=== PATIENT | male | born 1975 | race Two or more races ===

== ENCOUNTER → 2017-01-05 | Outpatient (CLI) | payer BC | END | disposition home or self-care (01) | LOC: Rad HDHVI 10:43 | PROVIDERS: ATTEND Internal Medicine Cardiovascular Disease | DX: M19.041 Primary osteoarthritis, right hand (principal); M25.531 Pain in right wrist | CPT/HCPCS: 73110; 73130 ==

== ENCOUNTER 2017-07-13 16:53 | Inpatient (IN) | payer MEDICAID ==
[~2017-07-13] VITALS: Ht 175.3 cm; Wt 89.2 kg
[2017-07-13] MEDS ORDERED: SODIUM CHLORIDE 0.9% 1,000 ML IV ONE ×3 (17:38→21:15)
[2017-07-13] MEDS ORDERED: ONDANSETRON HCL 4 MG/2 ML VIAL IV ONE (17:45)
[2017-07-13] MEDS ORDERED: PANTOPRAZOLE 40 MG/10 ML VIAL IV ONE (18:00)
[2017-07-13] MEDS ORDERED: LEVOFLOXACIN 500MG 100 ML IV ONE (18:00)
[2017-07-13] MEDS ORDERED: metroNIDAZOLE 500MG/100ML 100 ML IV ONE (18:00)
[2017-07-13 19:12] LABS: CONDITION Y; DEFINITIVE SEE PRINTOUT; Hematocrit 29.3 % (41.0-53.0); Hemoglobin 10.2 g/dL (13.5-17.5); Mean Corpuscular Hemoglobin 35.6 pg (28.0-32.0); Mean Corpuscular Hgb Conc. 34.8 g/dL (32.0-36.0); Mean Corpuscular Volume 102.3 fL (80.0-100.0); Mean Platelet Volume 9.3 fL (7.4-10.4); Platelet Count (auto) 122 10^3/uL (140-450); Red Cell Distribution Width 17.6 % (11.6-16.0); White Blood Cell 6.4 10^3/uL (4.4-10.8)
[2017-07-13 19:25] LABS: Lactic Acid w/Reflex 2.8 mmol/L (0.4-2.0)
[2017-07-13 19:27] LABS: Metamyelocytes % 0; Myelocytes % 0; Promyelocytes % 0; Reactive Lymphocytes 0
[2017-07-13 19:36] LABS: Albumin 1.5 g/dL (3.4-5.0); Amylase 143 U/L (25-115); Anion Gap 13 (5-15); Blood Urea Nitrogen 36 mg/dL (7-18); Calcium 7.1 mg/dL (8.5-10.1); Carbon Dioxide 19 mmol/L (21-32); Chloride 104 mmol/L (98-107); Glucose 97 mg/dL (74-106); Magnesium 1.7 mg/dL (1.6-2.6); Potassium 4.6 mmol/L (3.5-5.1); Sodium 136 mmol/L (136-145)
[2017-07-13 19:38] LABS: INR 1.95 (0.9-1.15); Partial Thromboplastin Time 51.3 sec (22.64-33.71)
[2017-07-13 19:43] LABS: Alkaline Phosphatase 158 U/L (45-117); Aspartate Aminotransferase 141 U/L (15-37); BUN/Creatinine Ratio 3.3; Bilirubin, Total 11.8 mg/dL (0.2-1.0); GFR African American 7 mL/min; GFR Non-African American 6 mL/min; Total Protein 6.2 g/dL (6.4-8.2)
[2017-07-13 20:01] LABS: REFLEX LACTIC ACID YES OR NO YES
[2017-07-13 20:11] LABS: Prothrombin Time 21.4 sec (9.37-12.3)
[2017-07-13 20:53] LABS: Urine Mucus FEW (None Seen); Urine RBC 6 /hpf (0 - 3); Urine Squamous Epithelial Cell FEW /hpf (<5)
[2017-07-13 21:00] LABS: Lactic Acid w/Reflex 2.9 mmol/L (0.4-2.0)
[2017-07-13 21:03] LABS: Macrocytosis Slight; Platelet Estimate Decreased
[2017-07-13 21:09] LABS: REFLEX LACTIC ACID YES OR NO YES
[2017-07-13 21:23] LABS: Urine Color Amber (Yellow)
[2017-07-13] MEDS: PHENYLEPHRINE INJ 20 MG in SODIUM CHL 0.9% 250 ML IV SCH (22:57)
[2017-07-13] MEDS ORDERED: NITROGLYCERIN 0.4 MG SL TAB SL PRN (23:00)
[2017-07-13] MEDS ORDERED: VANCOMYCIN PER PHARMACY 0 MG IV SCH (23:00)
[2017-07-13] MEDS ORDERED: ONDANSETRON HCL 4 MG/2 ML VIAL IV PRN (23:00)
[2017-07-13] MEDS ORDERED: ACETAMINOPHEN 325 MG TAB PO PRN (23:00)
[2017-07-13] MEDS ORDERED: ALBUMIN 5% 250 ML IV ONE ×2 (23:00→23:30)
[2017-07-13] MEDS ORDERED: VANCOMYCIN 1GM/250ML D5W 250 ML IV ONE (23:30)
[2017-07-13] MEDS: SODIUM CHLORIDE 0.9% 1,000 ML IV SCH (23:49)
[2017-07-14 00:02] LABS: Albumin 1.5 g/dL (3.4-5.0); Calcium 6.8 mg/dL (8.5-10.1); Potassium 4.7 mmol/L (3.5-5.1)
[2017-07-14 00:10] LABS: BUN/Creatinine Ratio 3.6; Bilirubin, Total 11.1 mg/dL (0.2-1.0); Total Protein 5.8 g/dL (6.4-8.2)
[2017-07-14 00:12] LABS: B-Type Natriuretic Peptide 208.11 pg/mL (0-100)
[2017-07-14 00:17] LABS: Temperature: 22.9 C (20.0-25.0)
[2017-07-14 00:47] LABS: Hematocrit 28.9 % (41.0-53.0); Hemoglobin 9.8 g/dL (13.5-17.5)
[2017-07-14] MEDS ORDERED: PHENYLEPHRINE HCL 10 MG/ML VL ONE (03:08)
[2017-07-14] MEDS: TEMAZEPAM 15 MG CAP PO PRN (05:34)
[2017-07-14] MEDS: SODIUM CHLORIDE 0.9% 1,000 ML IV SCH (05:35)
[2017-07-14] MEDS: metroNIDAZOLE 500MG/100ML 100 ML IV SCH ×3 (05:39→22:04)
[2017-07-14 06:58] LABS: CONDITION Y; DEFINITIVE SEE PRINTOUT; Hematocrit 31.1 % (41.0-53.0); Hemoglobin 10.8 g/dL (13.5-17.5); Mean Corpuscular Hgb Conc. 34.8 g/dL (32.0-36.0); Mean Corpuscular Volume 103.5 fL (80.0-100.0); Mean Platelet Volume 9.3 fL (7.4-10.4); Platelet Count (auto) 122 10^3/uL (140-450); White Blood Cell 6.6 10^3/uL (4.4-10.8)
[2017-07-14 07:06] LABS: Metamyelocytes % 0; Myelocytes % 0; Promyelocytes % 0; Reactive Lymphocytes 0
[2017-07-14] MEDS: PANTOPRAZOLE 40 MG/10 ML VIAL IV SCH (07:28)
[2017-07-14] MEDS: ENOXAPARIN SOD 30 MG/0.3 ML SYRINGE SC SCH (07:28)
[2017-07-14 07:36] LABS: Potassium 4.3 mmol/L (3.5-5.1)
[2017-07-14 08:04] LABS: Albumin 2.1 g/dL (3.4-5.0); BUN/Creatinine Ratio 3.7; Bilirubin, Total 13.1 mg/dL (0.2-1.0); Total Protein 6.4 g/dL (6.4-8.2)
[2017-07-14] MEDS: PHENYLEPHRINE INJ 20 MG in SODIUM CHL 0.9% 250 ML IV SCH ×3 (11:08→23:57)
[2017-07-14] MEDS: ALBUMIN 25% 100 ML IV SCH ×2 (12:44→13:45)
[2017-07-14] MEDS: SODIUM BICARBONATE 50ML VIAL 50 ML in SOD CHL 0.45% 1,000 ML IV SCH (13:07)
[2017-07-14 16:19] LABS: Macrocytosis Slight; Platelet Estimate Decreased
[2017-07-15] MEDS: SODIUM BICARBONATE 50ML VIAL 50 ML in SOD CHL 0.45% 1,000 ML IV SCH ×2 (03:00→17:49)
[2017-07-15 03:32] LABS: CONDITION Y; DEFINITIVE SEE PRINTOUT; Hematocrit 28.3 % (41.0-53.0); Hemoglobin 9.8 g/dL (13.5-17.5); Mean Corpuscular Hemoglobin 35.7 pg (28.0-32.0); Mean Corpuscular Hgb Conc. 34.7 g/dL (32.0-36.0); Mean Corpuscular Volume 102.9 fL (80.0-100.0); Mean Platelet Volume 9.1 fL (7.4-10.4); Platelet Count (auto) 90 10^3/uL (140-450); Red Cell Distribution Width 18.1 % (11.6-16.0); SUSPECT SEE PRINTOUT; White Blood Cell 5.1 10^3/uL (4.4-10.8)
[2017-07-15 03:52] LABS: Albumin 2.3 g/dL (3.4-5.0); Calcium 6.7 mg/dL (8.5-10.1); Potassium 4.4 mmol/L (3.5-5.1)
[2017-07-15 03:54] LABS: BUN/Creatinine Ratio 4.1
[2017-07-15 04:05] LABS: Total Protein 6.2 g/dL (6.4-8.2)
[2017-07-15 04:28] LABS: Myelocytes % 0; Promyelocytes % 0; Reactive Lymphocytes 0
[2017-07-15 05:15] LABS: Anisocytosis Slight; Macrocytosis Slight; Metamyelocytes % 1; Platelet Estimate Decreased
[2017-07-15] MEDS: metroNIDAZOLE 500MG/100ML 100 ML IV SCH ×3 (06:00→22:14)
[2017-07-15] MEDS ORDERED: VANCOMYCIN 1GM/250ML D5W 250 ML IV ONE (10:00)
[2017-07-15] MEDS: PANTOPRAZOLE 40 MG/10 ML VIAL IV SCH (10:11)
[2017-07-15] MEDS: ENOXAPARIN SOD 30 MG/0.3 ML SYRINGE SC SCH (10:11)
[2017-07-15] MEDS: PHENYLEPHRINE INJ 20 MG in SODIUM CHL 0.9% 250 ML IV SCH ×2 (11:56→17:53)
[2017-07-15] MEDS: LORazepam 2MG/ML-1ML VIAL IV PRN (19:17)
[2017-07-16] VITALS (26 sets, daily range): BP systolic 93–126; BP diastolic 43–81
[2017-07-16] MEDS: PHENYLEPHRINE INJ 20 MG in SODIUM CHL 0.9% 250 ML IV SCH ×3 (00:57→20:06)
[2017-07-16 03:56] LABS: CONDITION Y; DEFINITIVE SEE PRINTOUT; Hematocrit 27.9 % (41.0-53.0); Hemoglobin 9.8 g/dL (13.5-17.5); Mean Corpuscular Hemoglobin 36.3 pg (28.0-32.0); Mean Corpuscular Hgb Conc. 35.2 g/dL (32.0-36.0); Mean Corpuscular Volume 103.1 fL (80.0-100.0); Mean Platelet Volume 8.8 fL (7.4-10.4); Platelet Count (auto) 101 10^3/uL (140-450); Red Cell Distribution Width 17.6 % (11.6-16.0); SUSPECT SEE PRINTOUT; White Blood Cell 5.7 10^3/uL (4.4-10.8)
[2017-07-16 04:18] LABS: Albumin 2.1 g/dL (3.4-5.0); Calcium 6.6 mg/dL (8.5-10.1); Potassium 4.3 mmol/L (3.5-5.1)
[2017-07-16 04:27] LABS: BUN/Creatinine Ratio 4.9; Bilirubin, Total 18.3 mg/dL (0.2-1.0); Total Protein 6.1 g/dL (6.4-8.2)
[2017-07-16 04:48] LABS: Metamyelocytes % 0; Myelocytes % 0; Promyelocytes % 0; Reactive Lymphocytes 0
[2017-07-16 05:44] LABS: Anisocytosis Slight; Macrocytosis Slight; Platelet Estimate Decreased
[2017-07-16] MEDS ORDERED: SODIUM BICARBONATE 8.4% INJ 50ML SYRINGE ONE (05:57)
[2017-07-16] MEDS: SODIUM BICARBONATE 50ML VIAL 50 ML in SOD CHL 0.45% 1,000 ML IV SCH ×2 (06:13→20:01)
[2017-07-16] MEDS: metroNIDAZOLE 500MG/100ML 100 ML IV SCH ×3 (06:13→22:21)
[2017-07-16 09:46] LABS: Hepatitis B Surface Antibody Negative
[2017-07-16] MEDS ORDERED: ALBUMIN 25% 50 ML IV ONE (10:15)
[2017-07-16] MEDS: PANTOPRAZOLE 40 MG/10 ML VIAL IV SCH (11:34)
[2017-07-16] MEDS: ENOXAPARIN SOD 30 MG/0.3 ML SYRINGE SC SCH (11:34)
[2017-07-16] MEDS ORDERED: PHYTONADIONE (VIT K)10 MG/ML 1ML VIAL SUBCUT ONE (11:45)
[2017-07-16] MEDS ORDERED: PHENYLEPHRINE IV 250 ML IV ONE (19:59)
[2017-07-16] MEDS: TEMAZEPAM 15 MG CAP PO PRN (22:26)
[2017-07-17] VITALS (78 sets, daily range): BP systolic 85–159; BP diastolic 42–82
[2017-07-17] MEDS: PHENYLEPHRINE INJ 20 MG in SODIUM CHL 0.9% 250 ML IV SCH ×2 (02:14→17:26)
[2017-07-17] MEDS: metroNIDAZOLE 500MG/100ML 100 ML IV SCH ×3 (05:58→21:52)
[2017-07-17 06:47] LABS: CONDITION Y; DEFINITIVE SEE PRINTOUT; Hemoglobin 9.8 g/dL (13.5-17.5); Mean Corpuscular Hemoglobin 36.2 pg (28.0-32.0); Mean Corpuscular Volume 103.4 fL (80.0-100.0); Platelet Count (auto) 107 10^3/uL (140-450); Red Cell Distribution Width 17.7 % (11.6-16.0); SUSPECT SEE PRINTOUT; White Blood Cell 6.2 10^3/uL (4.4-10.8)
[2017-07-17 06:52] LABS: Metamyelocytes % 0; Myelocytes % 0; Promyelocytes % 0; Reactive Lymphocytes 0
[2017-07-17 07:22] LABS: BUN/Creatinine Ratio 5.2; Bilirubin, Total 22.4 mg/dL (0.2-1.0); Calcium 6.5 mg/dL (8.5-10.1); Total Protein 5.9 g/dL (6.4-8.2)
[2017-07-17 07:42] LABS: Macrocytosis Slight
[2017-07-17 07:43] LABS: Platelet Estimate Decreased
[2017-07-17] MEDS ORDERED: PHENYLEPHRINE IV 250 ML IV ONE (09:45)
[2017-07-17] MEDS ORDERED: VANCOMYCIN 500 MG in D5W 5% 100 ML IV ONE (10:00)
[2017-07-17] MEDS: PANTOPRAZOLE 40 MG/10 ML VIAL IV SCH (10:01)
[2017-07-17] MEDS: PHYTONADIONE (VIT K)10 MG/ML 1ML VIAL SUBCUT SCH (10:07)
[2017-07-17] MEDS ORDERED: BUMETANIDE (0.25MG/ML) 4 ML VIAL IV ONE (14:00)
[2017-07-17] MEDS: SODIUM BICARBONATE 50ML VIAL 50 ML in SOD CHL 0.45% 1,000 ML IV SCH (14:00)
[2017-07-17] MEDS: ALBUMIN 25% 100 ML IV SCH ×2 (14:01→15:33)
[2017-07-17] MEDS: LORazepam 2MG/ML-1ML VIAL IV PRN (14:05)
[2017-07-17] MEDS: MORPHINE SULF INJ 2 MG/ML SYRINGE 1ML IV PRN (20:43)
[2017-07-18] VITALS (54 sets, daily range): BP systolic 75–124; BP diastolic 30–85
[2017-07-18] MEDS ORDERED: PHENYLEPHRINE IV 250 ML IV ONE (03:24)
[2017-07-18] MEDS: PHENYLEPHRINE INJ 20 MG in SODIUM CHL 0.9% 250 ML IV SCH ×4 (03:34→11:41)
[2017-07-18 04:42] LABS: CONDITION Y; DEFINITIVE SEE PRINTOUT; Hematocrit 27.7 % (41.0-53.0); Hemoglobin 9.8 g/dL (13.5-17.5); Mean Corpuscular Hemoglobin 36.7 pg (28.0-32.0); Mean Corpuscular Hgb Conc. 35.4 g/dL (32.0-36.0); Mean Corpuscular Volume 103.7 fL (80.0-100.0); Mean Platelet Volume 8.5 fL (7.4-10.4); Platelet Count (auto) 95 10^3/uL (140-450); Red Cell Distribution Width 17.2 % (11.6-16.0); White Blood Cell 6.2 10^3/uL (4.4-10.8)
[2017-07-18 04:52] LABS: Myelocytes % 0; Promyelocytes % 0; Reactive Lymphocytes 0
[2017-07-18 05:07] LABS: INR 2.79 (0.9-1.15); Prothrombin Time 30.7 sec (9.37-12.3)
[2017-07-18 05:13] LABS: Partial Thromboplastin Time 77.7 sec (22.64-33.71)
[2017-07-18 05:23] LABS: Albumin 2.3 g/dL (3.4-5.0); Calcium 6.3 mg/dL (8.5-10.1); Potassium 4.2 mmol/L (3.5-5.1)
[2017-07-18 05:31] LABS: BUN/Creatinine Ratio 5.2; Bilirubin, Total 24.6 mg/dL (0.2-1.0); Total Protein 5.9 g/dL (6.4-8.2)
[2017-07-18 05:32] LABS: Macrocytosis Slight; Metamyelocytes % 1; Platelet Estimate Decreased
[2017-07-18] MEDS: metroNIDAZOLE 500MG/100ML 100 ML IV SCH ×3 (06:19→22:08)
[2017-07-18] MEDS: SODIUM BICARBONATE 50ML VIAL 50 ML in SOD CHL 0.45% 1,000 ML IV SCH ×3 (07:39→22:16)
[2017-07-18] MEDS: ALBUMIN 25% 100 ML IV SCH ×2 (09:54→10:58)
[2017-07-18] MEDS ORDERED: BUMETANIDE (0.25MG/ML) 4 ML VIAL IV ONE (10:00)
[2017-07-18] MEDS: PANTOPRAZOLE 40 MG/10 ML VIAL IV SCH (10:01)
[2017-07-18] MEDS: PHYTONADIONE (VIT K)10 MG/ML 1ML VIAL SUBCUT SCH (10:02)
[2017-07-18 14:44] LABS: Urine Bilirubin 3+ (Negative); Urine Blood 2+ /uL (Negative); Urine Color Brown (Yellow); Urine Glucose Normal (Normal); Urine Hyaline Cast MOD /lpf (0 - 2); Urine Ketone Negative (Negative); Urine Mucus FEW (None Seen); Urine Nitrite Negative (Negative); Urine RBC 108 /hpf (0 - 3); Urine Squamous Epithelial Cell FEW /hpf (<5); Urine Urobilinogen Normal (Negative); Urine WBC Clumps PRESENT /hpf (None Seen)
[2017-07-18] MEDS: HYDROcodone-ACET 5/325MG TAB PO PRN (18:11)
[2017-07-18] MEDS: MORPHINE SULF INJ 2 MG/ML SYRINGE 1ML IV PRN (22:22)
[2017-07-19] VITALS (51 sets, daily range): BP systolic 70–124; BP diastolic 35–78
[2017-07-19] MEDS: MORPHINE SULF INJ 2 MG/ML SYRINGE 1ML IV PRN ×2 (00:07→22:33)
[2017-07-19] MEDS: HYDROcodone-ACET 5/325MG TAB PO PRN ×2 (03:05→14:18)
[2017-07-19 03:53] LABS: Basophils # (auto) 0 uL; Basophils % (auto) 0.5 % (0.0-2.0); CONDITION Y; DEFINITIVE SEE PRINTOUT; Eosinophils # (auto) 0.2 uL; Eosinophils % (auto) 2.4 % (0.0-7.0); Hematocrit 27.2 % (41.0-53.0); Hemoglobin 9.4 g/dL (13.5-17.5); Lymphocytes % (auto) 14.9 % (10.0-50.0); Mean Corpuscular Hemoglobin 35.9 pg (28.0-32.0); Mean Corpuscular Hgb Conc. 34.4 g/dL (32.0-36.0); Mean Corpuscular Volume 104.2 fL (80.0-100.0); Mean Platelet Volume 8.3 fL (7.4-10.4); Monocytes # (auto) 1.1 uL; Monocytes % (auto) 15.7 % (0.0-12.0); Neutrophils # (auto) 4.7 uL; Neutrophils % (auto) 66.5 % (37.0-80.0); Platelet Count (auto) 101 10^3/uL (140-450); Red Cell Distribution Width 17.4 % (11.6-16.0)
[2017-07-19 04:20] LABS: Albumin 2.5 g/dL (3.4-5.0); Calcium 6.3 mg/dL (8.5-10.1); Potassium 3.7 mmol/L (3.5-5.1)
[2017-07-19 04:28] LABS: BUN/Creatinine Ratio 5.6; Total Protein 5.8 g/dL (6.4-8.2)
[2017-07-19 04:37] LABS: Bilirubin, Total 27.1 mg/dL (0.2-1.0)
[2017-07-19] MEDS: SODIUM BICARBONATE 50ML VIAL 50 ML in SOD CHL 0.45% 1,000 ML IV SCH ×2 (05:00→19:01)
[2017-07-19] MEDS: metroNIDAZOLE 500MG/100ML 100 ML IV SCH ×3 (06:28→22:28)
[2017-07-19] MEDS ORDERED: VANCOMYCIN 500 MG in D5W 5% 100 ML IV ONE (10:00)
[2017-07-19] MEDS: PANTOPRAZOLE 40 MG/10 ML VIAL IV SCH (10:13)
[2017-07-19] MEDS: PHYTONADIONE (VIT K)10 MG/ML 1ML VIAL SUBCUT SCH (10:15)
[2017-07-19] MEDS: PHENYLEPHRINE INJ 20 MG in SODIUM CHL 0.9% 250 ML IV SCH ×2 (10:39→12:17)
[2017-07-19] MEDS: BUMETANIDE INJECTION 25 MG in GIVE UN-DILUTED 0 ML IV SCH (13:00)
[2017-07-19] MEDS ORDERED: BUMETANIDE (0.25 MG/ML) INJ 10ML IV ONE (13:00)
[2017-07-20] VITALS (57 sets, daily range): BP systolic 69–142; BP diastolic 34–76
[2017-07-20] MEDS: PHENYLEPHRINE INJ 20 MG in SODIUM CHL 0.9% 250 ML IV SCH ×4 (00:50→21:37)
[2017-07-20 03:57] LABS: BUN/Creatinine Ratio 6.1; Calcium 6.3 mg/dL (8.5-10.1); Potassium 3.9 mmol/L (3.5-5.1)
[2017-07-20] MEDS: metroNIDAZOLE 500MG/100ML 100 ML IV SCH ×3 (06:04→22:22)
[2017-07-20] MEDS: MORPHINE SULF INJ 2 MG/ML SYRINGE 1ML IV PRN ×3 (06:05→22:22)
[2017-07-20] MEDS: BUMETANIDE INJECTION 25 MG in GIVE UN-DILUTED 0 ML IV SCH (06:47)
[2017-07-20] MEDS: PANTOPRAZOLE 40 MG/10 ML VIAL IV SCH (09:58)
[2017-07-20] MEDS: SODIUM BICARBONATE 50ML VIAL 50 ML in SOD CHL 0.45% 1,000 ML IV SCH (09:59)
[2017-07-20] MEDS: PHYTONADIONE (VIT K)10 MG/ML 1ML VIAL SUBCUT SCH (09:59)
[2017-07-21] VITALS (88 sets, daily range): BP systolic 74–117; BP diastolic 35–76
[2017-07-21] MEDS: SODIUM BICARBONATE 50ML VIAL 50 ML in SOD CHL 0.45% 1,000 ML IV SCH ×2 (02:16→13:00)
[2017-07-21 03:19] LABS: Basophils # (auto) 0 uL; Basophils % (auto) 0.3 % (0.0-2.0); CONDITION Y; DEFINITIVE SEE PRINTOUT; Eosinophils # (auto) 0.1 uL; Eosinophils % (auto) 1.9 % (0.0-7.0); Hematocrit 26.8 % (41.0-53.0); Hemoglobin 9.4 g/dL (13.5-17.5); Lymphocytes # (auto) 0.9 uL; Lymphocytes % (auto) 11.1 % (10.0-50.0); Mean Corpuscular Hemoglobin 36.3 pg (28.0-32.0); Mean Corpuscular Hgb Conc. 34.9 g/dL (32.0-36.0); Mean Platelet Volume 8.2 fL (7.4-10.4); Monocytes # (auto) 1.4 uL; Monocytes % (auto) 17.4 % (0.0-12.0); Neutrophils # (auto) 5.4 uL; Neutrophils % (auto) 69.3 % (37.0-80.0); Platelet Count (auto) 101 10^3/uL (140-450); White Blood Cell 7.8 10^3/uL (4.4-10.8)
[2017-07-21] MEDS: HYDROcodone-ACET 5/325MG TAB PO PRN ×2 (03:20→10:10)
[2017-07-21 03:35] LABS: Albumin 2.1 g/dL (3.4-5.0); Calcium 6.4 mg/dL (8.5-10.1)
[2017-07-21 03:44] LABS: BUN/Creatinine Ratio 6.7; Total Protein 5.2 g/dL (6.4-8.2)
[2017-07-21 03:52] LABS: Bilirubin, Total 26.9 mg/dL (0.2-1.0)
[2017-07-21] MEDS: metroNIDAZOLE 500MG/100ML 100 ML IV SCH ×3 (05:31→22:05)
[2017-07-21] MEDS: PHENYLEPHRINE INJ 20 MG in SODIUM CHL 0.9% 250 ML IV SCH ×2 (05:32→21:06)
[2017-07-21] MEDS: PHYTONADIONE (VIT K)10 MG/ML 1ML VIAL SUBCUT SCH (10:10)
[2017-07-21] MEDS: PANTOPRAZOLE 40 MG/10 ML VIAL IV SCH (10:10)
[2017-07-21] MEDS: BUMETANIDE INJECTION 25 MG in GIVE UN-DILUTED 0 ML IV SCH (10:49)
[2017-07-21] MEDS ORDERED: MIDAZOLAM DRIP 50 mg/50mL 50 ML IV ONE (11:48)
[2017-07-21] MEDS ORDERED: THROAT LOZENGES(CEPASTAT) MT PRN (15:45)
[2017-07-21] MEDS: MORPHINE SULF INJ 2 MG/ML SYRINGE 1ML IV PRN ×2 (18:45→22:43)
[2017-07-21] MEDS ORDERED: HEPARIN SODIUM (PORCINE) 5000 UNITS/ML 1ML VIAL ONE (18:48)
[2017-07-21] MEDS ORDERED: HEPARIN 1,000 UNITS/ml 1ML VIAL ONE (19:52)
[2017-07-21] MEDS ORDERED: HEPARIN 1,000 UNITS/ml 1ML VIAL IV ONE (20:15)
[2017-07-21] MEDS: MIDODRINE HCL 10 MG TAB PO SCH (21:08)
[2017-07-22] VITALS (88 sets, daily range): BP systolic 85–142; BP diastolic 36–85
[2017-07-22] MEDS: HYDROcodone-ACET 5/325MG TAB PO PRN ×3 (02:28→23:50)
[2017-07-22] MEDS: SODIUM BICARBONATE 50ML VIAL 50 ML in SOD CHL 0.45% 1,000 ML IV SCH ×2 (03:00→11:40)
[2017-07-22 03:48] LABS: INR 1.99 (0.9-1.15); Partial Thromboplastin Time 65.8 sec (22.64-33.71); Prothrombin Time 21.8 sec (9.37-12.3)
[2017-07-22 04:08] LABS: Albumin 2.3 g/dL (3.4-5.0); Basophils # (auto) 0 uL; Basophils % (auto) 0.4 % (0.0-2.0); CONDITION Y; Calcium 6.5 mg/dL (8.5-10.1); DEFINITIVE SEE PRINTOUT; Eosinophils # (auto) 0.2 uL; Hemoglobin 9.3 g/dL (13.5-17.5); Lymphocytes # (auto) 0.6 uL; Lymphocytes % (auto) 6.2 % (10.0-50.0); Mean Corpuscular Hemoglobin 37.1 pg (28.0-32.0); Mean Corpuscular Hgb Conc. 35.7 g/dL (32.0-36.0); Mean Corpuscular Volume 103.9 fL (80.0-100.0); Mean Platelet Volume 8.3 fL (7.4-10.4); Monocytes # (auto) 1.6 uL; Monocytes % (auto) 17.8 % (0.0-12.0); Neutrophils # (auto) 6.6 uL; Neutrophils % (auto) 73.6 % (37.0-80.0); Platelet Count (auto) 106 10^3/uL (140-450); Red Cell Distribution Width 17.2 % (11.6-16.0)
[2017-07-22 04:18] LABS: BUN/Creatinine Ratio 6.4; Total Protein 5.6 g/dL (6.4-8.2)
[2017-07-22 04:27] LABS: Bilirubin, Total 28.8 mg/dL (0.2-1.0)
[2017-07-22] MEDS: metroNIDAZOLE 500MG/100ML 100 ML IV SCH (05:27)
[2017-07-22] MEDS: MIDODRINE HCL 10 MG TAB PO SCH ×3 (05:28→21:33)
[2017-07-22] MEDS ORDERED: ALBUMIN 25% 100 ML IV ONE ×3 (06:30→06:45)
[2017-07-22] MEDS: PHENYLEPHRINE INJ 20 MG in SODIUM CHL 0.9% 250 ML IV SCH ×3 (08:00→23:57)
[2017-07-22] MEDS: PANTOPRAZOLE 40 MG/10 ML VIAL IV SCH (10:20)
[2017-07-22] MEDS: PHYTONADIONE (VIT K)10 MG/ML 1ML VIAL SUBCUT SCH (11:40)
[2017-07-22] MEDS: BUMETANIDE INJECTION 25 MG in GIVE UN-DILUTED 0 ML IV SCH (11:41)
[2017-07-22] MEDS: BOOST PLUS 8 ounce PO SCH ×2 (12:53→18:51)
[2017-07-22] MEDS: LORazepam 2MG/ML-1ML VIAL IV PRN (21:33)
[2017-07-23] VITALS (87 sets, daily range): BP systolic 87–136; BP diastolic 54–98
[2017-07-23] MEDS: SODIUM BICARBONATE 50ML VIAL 50 ML in SOD CHL 0.45% 1,000 ML IV SCH (01:02)
[2017-07-23 03:49] LABS: CONDITION Y; DEFINITIVE SEE PRINTOUT; Hematocrit 22.7 % (41.0-53.0); Hemoglobin 8.1 g/dL (13.5-17.5); Mean Corpuscular Hemoglobin 36.9 pg (28.0-32.0); Mean Corpuscular Hgb Conc. 35.5 g/dL (32.0-36.0); Mean Corpuscular Volume 103.9 fL (80.0-100.0); Mean Platelet Volume 8.1 fL (7.4-10.4); Platelet Count (auto) 63 10^3/uL (140-450); Red Cell Distribution Width 17.4 % (11.6-16.0); White Blood Cell 6.6 10^3/uL (4.4-10.8)
[2017-07-23 03:55] LABS: INR 2.35 (0.9-1.15); Prothrombin Time 25.8 sec (9.37-12.3)
[2017-07-23 04:02] LABS: Metamyelocytes % 0; Promyelocytes % 0; Reactive Lymphocytes 0
[2017-07-23 04:36] LABS: Albumin 2.6 g/dL (3.4-5.0); BUN/Creatinine Ratio 6.6; Bilirubin, Total 25.5 mg/dL (0.2-1.0); Calcium 7.1 mg/dL (8.5-10.1); Potassium 3.2 mmol/L (3.5-5.1)
[2017-07-23 04:37] LABS: Total Protein 5.3 g/dL (6.4-8.2)
[2017-07-23 04:58] LABS: Anisocytosis Slight; Macrocytosis Slight; Myelocytes % 1; Platelet Estimate Decreased
[2017-07-23 04:59] LABS: Ovalocytes FEW; Stomatocytes Few
[2017-07-23] MEDS: MIDODRINE HCL 10 MG TAB PO SCH ×3 (05:00→22:30)
[2017-07-23] MEDS: BOOST PLUS 8 ounce PO SCH ×3 (08:00→18:00)
[2017-07-23] MEDS: PHENYLEPHRINE INJ 20 MG in SODIUM CHL 0.9% 250 ML IV SCH ×2 (08:17→15:42)
[2017-07-23] MEDS: PANTOPRAZOLE 40 MG/10 ML VIAL IV SCH (10:21)
[2017-07-23] MEDS: PHYTONADIONE (VIT K)10 MG/ML 1ML VIAL SUBCUT SCH (10:22)
[2017-07-23] MEDS ORDERED: HEPARIN 1,000 UNITS/ml 1ML VIAL IV ONE (10:45)
[2017-07-23] MEDS ORDERED: ALBUMIN 25% 100 ML IV SCH (11:00)
[2017-07-23] MEDS: BUMETANIDE INJECTION 25 MG in GIVE UN-DILUTED 0 ML IV SCH ×2 (13:00→15:44)
[2017-07-23] MEDS ORDERED: MORPHINE SULF INJ 2 MG/ML SYRINGE 1ML IV PRN (14:45)
[2017-07-23] MEDS ORDERED: TEMAZEPAM 15 MG CAP PO PRN (14:45)
[2017-07-23] MEDS: HYDROcodone-ACET 5/325MG TAB PO PRN (22:41)
[2017-07-24] VITALS (8 sets, daily range): BP systolic 110–128; BP diastolic 63–80
[2017-07-24] MEDS: PHENYLEPHRINE INJ 20 MG in SODIUM CHL 0.9% 250 ML IV SCH (00:57)
[2017-07-24 05:50] LABS: Basophils # (auto) 0 uL; Basophils % (auto) 0.4 % (0.0-2.0); CONDITION Y; DEFINITIVE SEE PRINTOUT; Eosinophils # (auto) 0.2 uL; Eosinophils % (auto) 2.1 % (0.0-7.0); Hematocrit 23.1 % (41.0-53.0); Hemoglobin 8.1 g/dL (13.5-17.5); Lymphocytes # (auto) 0.4 uL; Lymphocytes % (auto) 5.8 % (10.0-50.0); Mean Corpuscular Hemoglobin 36.6 pg (28.0-32.0); Mean Corpuscular Hgb Conc. 35.1 g/dL (32.0-36.0); Mean Corpuscular Volume 104.2 fL (80.0-100.0); Mean Platelet Volume 8.1 fL (7.4-10.4); Monocytes # (auto) 1.3 uL; Neutrophils # (auto) 5.6 uL; Neutrophils % (auto) 74.7 % (37.0-80.0); Platelet Count (auto) 48 10^3/uL (140-450); Red Cell Distribution Width 18.2 % (11.6-16.0); White Blood Cell 7.5 10^3/uL (4.4-10.8)
[2017-07-24 06:25] LABS: Albumin 3.3 g/dL (3.4-5.0); BUN/Creatinine Ratio 6.4; Bilirubin, Total 26.1 mg/dL (0.2-1.0); Calcium 8.1 mg/dL (8.5-10.1); Potassium 3.2 mmol/L (3.5-5.1)
[2017-07-24 06:35] LABS: Total Protein 5.8 g/dL (6.4-8.2)
[2017-07-24] MEDS: MIDODRINE HCL 10 MG TAB PO SCH ×3 (06:57→21:49)
[2017-07-24] MEDS: HYDROcodone-ACET 5/325MG TAB PO PRN (07:09)
[2017-07-24] MEDS: BOOST PLUS 8 ounce PO SCH ×2 (08:00→08:54)
[2017-07-24] MEDS ORDERED: cefTRIAXone 1GM/50ML D5W 50 ML IV ONE (09:15)
[2017-07-24] MEDS ORDERED: METOCLOPRAMIDE HCL 5MG/ml INJ 2ml VIAL IV ONE (09:15)
[2017-07-24] MEDS: PANTOPRAZOLE 40 MG/10 ML VIAL IV SCH (10:05)
[2017-07-24] MEDS: MORPHINE SULF INJ 2 MG/ML SYRINGE 1ML IV PRN ×2 (15:30→21:03)
[2017-07-24] MEDS: Novasource Renal 8 Ounces PO SCH (18:00)
[2017-07-25] VITALS (86 sets, daily range): BP systolic 84–154; BP diastolic 40–98
[2017-07-25 02:28] LABS: Allen Test Yes; Base Excess -0.2 mmol/L (-2.0-2.0); Blood 02Sat 95.1 % (96-100); Blood COHb 1.6 % (0.5-1.5); Blood MetHb 0.2 % (0.0-1.5); HCO3 21.4 mmol/L (22-26.0); HHb 4.8 % (0.0-5.0); MODE MASK - VENTI; O2Hb 93.4 % (94.0-97.0); PCO2 24.9 mmHg (35.0-45.0); PCO2(T) 27.8 mmHg (35.0-45.0); PO2 78.5 mmHg (80.0-100.0); PO2(T) 92.6 mmHg (80.0-100.0); Room 0203T; Sample Type Arterial; pH 7.552 (7.350-7.450)
[2017-07-25] MEDS ORDERED: ACETAMINOPHEN 650 MG RECT SUPP PR PRN (02:30)
[2017-07-25] MEDS ORDERED: SUCCINYLCHOLINE CHLORIDE 20 MG/ML 10ML VIAL IV ONE ×3 (02:42→03:15)
[2017-07-25] MEDS ORDERED: ETOMIDATE (2MG/ML) 20ML VIAL IV ONE ×2 (02:46→03:15)
[2017-07-25] MEDS ORDERED: MIDAZOLAM DRIP 50 mg/50mL 50 ML IV ONE (03:17)
[2017-07-25] MEDS: MIDAZOLAM DRIP 50 mg/50mL 50 ML IV SCH ×2 (03:20→23:03)
[2017-07-25 04:23] LABS: Allen Test Yes; Base Excess 2.5 mmol/L (-2.0-2.0); Blood 02Sat 99.4 % (96-100); Blood COHb 1.7 % (0.5-1.5); Blood MetHb 0.3 % (0.0-1.5); HCO3 25.4 mmol/L (22-26.0); HHb 0.6 % (0.0-5.0); MODE VENT - A/C; O2Hb 97.4 % (94.0-97.0); PCO2 32.7 mmHg (35.0-45.0); PCO2(T) 35.7 mmHg (35.0-45.0); PO2 227.9 mmHg (80.0-100.0); PO2(T) 237.9 mmHg (80.0-100.0); Sample Type Arterial; pH 7.508 (7.350-7.450)
[2017-07-25 06:51] LABS: Basophils # (auto) 0 uL; Basophils % (auto) 0.3 % (0.0-2.0); CONDITION Y; DEFINITIVE SEE PRINTOUT; Eosinophils # (auto) 0.1 uL; Eosinophils % (auto) 0.8 % (0.0-7.0); Hematocrit 28.8 % (41.0-53.0); Lymphocytes # (auto) 0.6 uL; Lymphocytes % (auto) 7.6 % (10.0-50.0); Mean Corpuscular Hemoglobin 36.1 pg (28.0-32.0); Mean Corpuscular Hgb Conc. 34.7 g/dL (32.0-36.0); Mean Corpuscular Volume 104.1 fL (80.0-100.0); Mean Platelet Volume 7.6 fL (7.4-10.4); Monocytes # (auto) 1.2 uL; Monocytes % (auto) 14.4 % (0.0-12.0); Neutrophils # (auto) 6.5 uL; Neutrophils % (auto) 76.9 % (37.0-80.0); Platelet Count (auto) 53 10^3/uL (140-450); Red Cell Distribution Width 18.5 % (11.6-16.0); White Blood Cell 8.5 10^3/uL (4.4-10.8)
[2017-07-25 07:05] LABS: BUN/Creatinine Ratio 7.5; Potassium 3.5 mmol/L (3.5-5.1)
[2017-07-25 07:18] LABS: Bilirubin, Total 27.4 mg/dL (0.2-1.0); Total Protein 6.1 g/dL (6.4-8.2)
[2017-07-25] MEDS: Novasource Renal 8 Ounces PO SCH ×2 (08:00→17:12)
[2017-07-25] MEDS: MIDODRINE HCL 10 MG TAB PO SCH ×3 (08:00→22:19)
[2017-07-25] MEDS: NOREPINEPHRINE BITARTRATE 250 ML IV SCH (11:20)
[2017-07-25] MEDS: BUMETANIDE INJECTION 25 MG in GIVE UN-DILUTED 0 ML IV SCH ×2 (13:00→19:30)
[2017-07-25] MEDS: cefTRIAXone 1GM/50ML D5W 50 ML IV SCH (13:42)
[2017-07-25] MEDS: PANTOPRAZOLE 40 MG/10 ML VIAL IV SCH (13:42)
[2017-07-26] VITALS (108 sets, daily range): BP systolic 75–115; BP diastolic 35–73
[2017-07-26] MEDS: MIDODRINE HCL 10 MG TAB PO SCH ×3 (06:07→22:00)
[2017-07-26 07:35] LABS: Allen Test Yes; Base Excess 2.7 mmol/L (-2.0-2.0); Blood COHb 0.9 % (0.5-1.5); Blood MetHb 0.1 % (0.0-1.5); HCO3 24.8 mmol/L (22-26.0); MODE VENT - A/C; PCO2 29.3 mmHg (35.0-45.0); PCO2(T) 29.3 mmHg (35.0-45.0); Sample Type Arterial; pH 7.545 (7.350-7.450)
[2017-07-26] MEDS: Novasource Renal 8 Ounces PO SCH ×2 (08:00→18:00)
[2017-07-26] MEDS: cefTRIAXone 1GM/50ML D5W 50 ML IV SCH (09:09)
[2017-07-26] MEDS: PANTOPRAZOLE 40 MG/10 ML VIAL IV SCH (10:22)
[2017-07-26] MEDS: NOREPINEPHRINE BITARTRATE 250 ML IV SCH (10:22)
[2017-07-26] MEDS ORDERED: POTASSIUM CHL 10% (20 MEQ/15ML) 15ml ORAL SOLN GT ONE (10:45)
[2017-07-26] MEDS: BUMETANIDE INJECTION 25 MG in GIVE UN-DILUTED 0 ML IV SCH ×2 (13:00→15:51)
[2017-07-27] VITALS (101 sets, daily range): BP systolic 80–120; BP diastolic 37–66
[2017-07-27 04:07] LABS: Calcium 7.8 mg/dL (8.5-10.1); Potassium 3.6 mmol/L (3.5-5.1)
[2017-07-27 04:10] LABS: Albumin 2.4 g/dL (3.4-5.0); BUN/Creatinine Ratio 8.2
[2017-07-27 04:24] LABS: Bilirubin, Total 24.6 mg/dL (0.2-1.0); Total Protein 5.5 g/dL (6.4-8.2)
[2017-07-27 05:44] LABS: CONDITION Y; DEFINITIVE SEE PRINTOUT; Hematocrit 26.3 % (41.0-53.0); Hemoglobin 9.3 g/dL (13.5-17.5); Mean Corpuscular Hemoglobin 36.2 pg (28.0-32.0); Mean Corpuscular Hgb Conc. 35.2 g/dL (32.0-36.0); Mean Platelet Volume 10.1 fL (7.4-10.4); Platelet Count (auto) 51 10^3/uL (140-450); Red Cell Distribution Width 18.4 % (11.6-16.0); SUSPECT SEE PRINTOUT; White Blood Cell 12.2 10^3/uL (4.4-10.8)
[2017-07-27 05:54] LABS: Metamyelocytes % 0; Myelocytes % 0; Promyelocytes % 0; Reactive Lymphocytes 0
[2017-07-27] MEDS: MIDODRINE HCL 10 MG TAB PO SCH ×3 (06:00→21:21)
[2017-07-27] MEDS: MIDAZOLAM DRIP 50 mg/50mL 50 ML IV SCH ×2 (06:45→11:10)
[2017-07-27 06:47] LABS: Platelet Estimate Decreased
[2017-07-27 06:48] LABS: Anisocytosis Slight; Macrocytosis Slight; Schistocytes FEW
[2017-07-27 07:52] LABS: Allen Test Yes; Base Excess 0.5 mmol/L (-2.0-2.0); Blood 02Sat 96.5 % (96-100); Blood COHb 1.3 % (0.5-1.5); Blood MetHb 0.1 % (0.0-1.5); HCO3 23.6 mmol/L (22-26.0); HHb 3.5 % (0.0-5.0); MODE VENT - A/C; O2Hb 95.1 % (94.0-97.0); PCO2 32.4 mmHg (35.0-45.0); PCO2(T) 32.4 mmHg (35.0-45.0); PO2 98.6 mmHg (80.0-100.0); PO2(T) 98.6 mmHg (80.0-100.0); Sample Type Arterial
[2017-07-27] MEDS: Novasource Renal 8 Ounces PO SCH (07:57)
[2017-07-27] MEDS: PANTOPRAZOLE 40 MG/10 ML VIAL IV SCH (09:12)
[2017-07-27] MEDS: cefTRIAXone 1GM/50ML D5W 50 ML IV SCH (09:12)
[2017-07-27] MEDS: NOREPINEPHRINE BITARTRATE 250 ML IV SCH ×2 (09:13→17:37)
[2017-07-27] MEDS ORDERED: ALBUMIN 25% 100 ML IV PRN (11:45)
[2017-07-27] MEDS ORDERED: EPOETIN ALFA 10,000 UNIT/1 ML VIAL IV ONE (11:45)
[2017-07-27] MEDS ORDERED: SODIUM CHL 0.9% 1000 ML BAG XX ONE (11:45)
[2017-07-27] MEDS ORDERED: ACETAMINOPHEN 650 MG RECT SUPP PR PRN (12:30)
[2017-07-27] MEDS ORDERED: Novasource Renal 1 Liter GT SCH (12:30)
[2017-07-27] MEDS ORDERED: PANTOPRAZOLE 40 MG/10 ML VIAL IV ONE (12:30)
[2017-07-27] MEDS ORDERED: ACETAMINOPHEN 650 mg PER 20 mL UD GT PRN (12:30)
[2017-07-27] MEDS ORDERED: VANCOMYCIN PER PHARMACY 0 MG IV SCH (12:30)
[2017-07-27] MEDS ORDERED: ONDANSETRON HCL 4 MG/2 ML VIAL IV PRN (12:30)
[2017-07-27] MEDS ORDERED: ERTAPENEM SOD INJ 0.5 GM in SODIUM CHL 0.9% 50 ML IV ONE (12:30)
[2017-07-27] MEDS: BACLOFEN 10 MG TAB PO PRN (14:24)
[2017-07-27] MEDS ORDERED: VANCOMYCIN 1,250 MG in D5W 5% 250 ML IV ONE (18:00)
[2017-07-28] VITALS (101 sets, daily range): BP systolic 83–118; BP diastolic 29–63
[2017-07-28 03:47] LABS: CONDITION Y; DEFINITIVE SEE PRINTOUT; Hemoglobin 8.5 g/dL (13.5-17.5); Mean Corpuscular Hemoglobin 36.9 pg (28.0-32.0); Mean Corpuscular Hgb Conc. 35.4 g/dL (32.0-36.0); Mean Corpuscular Volume 104.2 fL (80.0-100.0); Mean Platelet Volume 10.8 fL (7.4-10.4); Platelet Count (auto) 38 10^3/uL (140-450); Red Cell Distribution Width 18.1 % (11.6-16.0); SUSPECT SEE PRINTOUT; White Blood Cell 13.5 10^3/uL (4.4-10.8)
[2017-07-28 03:55] LABS: Myelocytes % 0; Promyelocytes % 0; Reactive Lymphocytes 0
[2017-07-28 04:06] LABS: Albumin 2.8 g/dL (3.4-5.0); BUN/Creatinine Ratio 7.6; Calcium 8.1 mg/dL (8.5-10.1); Potassium 4.2 mmol/L (3.5-5.1)
[2017-07-28] MEDS ORDERED: DEXTROSE 50% SYRINGE 50 ML IV ONE (04:23)
[2017-07-28 04:35] LABS: Metamyelocytes % 1
[2017-07-28 04:36] LABS: Anisocytosis Slight; Macrocytosis Slight; Platelet Estimate Decreased
[2017-07-28 04:39] LABS: Schistocytes FEW
[2017-07-28] MEDS: MIDODRINE HCL 10 MG TAB PO SCH (05:12)
[2017-07-28] MEDS: ACCU-CHEK COMFORT CURVE STRIP VI SCH ×4 (05:39→23:30)
[2017-07-28] MEDS: InsuLIN REG 1unit/0.01ml Soln (100units/ml) SC SCH ×3 (05:39→17:42)
[2017-07-28 06:34] LABS: Allen Test Modified; Base Excess -3.2 mmol/L (-2.0-2.0); Blood 02Sat 94.3 % (96-100); Blood COHb 2.2 % (0.5-1.5); Blood MetHb 0.1 % (0.0-1.5); HCO3 20.6 mmol/L (22-26.0); HHb 5.6 % (0.0-5.0); MODE VENT - A/C; O2Hb 92.1 % (94.0-97.0); PO2 81.7 mmHg (80.0-100.0); PO2(T) 81.7 mmHg (80.0-100.0); Sample Type Arterial; pH 7.426 (7.350-7.450)
[2017-07-28] MEDS: MIDAZOLAM DRIP 50 mg/50mL 50 ML IV SCH ×2 (09:10→22:01)
[2017-07-28] MEDS: NOREPINEPHRINE BITARTRATE 250 ML IV SCH ×2 (09:12→15:41)
[2017-07-28] MEDS: PANTOPRAZOLE 40 MG/10 ML VIAL IV SCH (09:54)
[2017-07-28] MEDS: ERTAPENEM SOD INJ 0.5 GM in SODIUM CHL 0.9% 50 ML IV SCH (09:55)
[2017-07-28] MEDS ORDERED: PANTOPRAZOLE 40 MG/10 ML VIAL IV SCH (10:00)
[2017-07-28] MEDS: DEXTROSE (50%) 50ML SYRG IV PRN ×2 (11:32→23:46)
[2017-07-29] VITALS (108 sets, daily range): BP systolic 50–120; BP diastolic 30–89
[2017-07-29] MEDS: ACCU-CHEK COMFORT CURVE STRIP VI SCH ×4 (00:17→17:58)
[2017-07-29] MEDS: NOREPINEPHRINE BITARTRATE 250 ML IV SCH ×5 (01:00→18:15)
[2017-07-29] MEDS ORDERED: SODIUM CHL 0.9% 1000 ML BAG XX ONE (04:00)
[2017-07-29] MEDS ORDERED: EPOETIN ALFA 10,000 UNIT/1 ML VIAL IV ONE (04:00)
[2017-07-29 04:14] LABS: CONDITION Y; DEFINITIVE SEE PRINTOUT; Hematocrit 25.4 % (41.0-53.0); Hemoglobin 8.7 g/dL (13.5-17.5); Mean Corpuscular Hgb Conc. 34.5 g/dL (32.0-36.0); Mean Corpuscular Volume 104.5 fL (80.0-100.0); Mean Platelet Volume 10.6 fL (7.4-10.4); Platelet Count (auto) 50 10^3/uL (140-450); SUSPECT SEE PRINTOUT; White Blood Cell 16.1 10^3/uL (4.4-10.8)
[2017-07-29 04:33] LABS: Metamyelocytes % 0; Myelocytes % 0; Promyelocytes % 0; Reactive Lymphocytes 0
[2017-07-29 04:35] LABS: Albumin 2.4 g/dL (3.4-5.0); BUN/Creatinine Ratio 7.6; Potassium 4.6 mmol/L (3.5-5.1)
[2017-07-29 04:37] LABS: Calcium 8.1 mg/dL (8.5-10.1); Total Protein 5.1 g/dL (6.4-8.2)
[2017-07-29 04:41] LABS: INR 3.22 (0.9-1.15); Prothrombin Time 35.5 sec (9.37-12.3)
[2017-07-29 04:52] LABS: Partial Thromboplastin Time 105.6 sec (22.64-33.71)
[2017-07-29] MEDS: InsuLIN REG 1unit/0.01ml Soln (100units/ml) SC SCH ×4 (06:00→17:57)
[2017-07-29] MEDS: BACLOFEN 10 MG TAB PO PRN (06:30)
[2017-07-29] MEDS: MIDAZOLAM DRIP 50 mg/50mL 50 ML IV SCH ×2 (06:31→18:14)
[2017-07-29 06:33] LABS: Allen Test Modified; Base Excess -2.5 mmol/L (-2.0-2.0); Blood 02Sat 95.5 % (96-100); Blood COHb 1.7 % (0.5-1.5); Blood MetHb 0.2 % (0.0-1.5); HCO3 20.7 mmol/L (22-26.0); HHb 4.4 % (0.0-5.0); MODE VENT - A/C; O2Hb 93.7 % (94.0-97.0); PCO2 29.7 mmHg (35.0-45.0); PCO2(T) 29.7 mmHg (35.0-45.0); PO2 88.8 mmHg (80.0-100.0); PO2(T) 88.8 mmHg (80.0-100.0); Sample Type Arterial; pH 7.461 (7.350-7.450)
[2017-07-29 07:30] LABS: Platelet Estimate Decreased
[2017-07-29 07:31] LABS: Burr Cells FEW; Macrocytosis Slight; Polychromasia Slight
[2017-07-29 07:32] LABS: Large Platelets FEW
[2017-07-29] MEDS: PANTOPRAZOLE 40 MG/10 ML VIAL IV SCH (09:45)
[2017-07-29] MEDS: ERTAPENEM SOD INJ 0.5 GM in SODIUM CHL 0.9% 50 ML IV SCH (09:52)
[2017-07-29] MEDS: VASOPRESSIN 50 UNITS in SODIUM CHL 0.9% 247.5 ML IV SCH (09:52)
[2017-07-29] MEDS: DEXTROSE (50%) 50ML SYRG IV PRN ×2 (11:30→23:45)
[2017-07-29] MEDS: AZTREONAM 1 GM in D5W 5% 50 ML IV SCH ×2 (13:44→22:03)
[2017-07-29] MEDS ORDERED: AZTREONAM 1GM INJ 0.5 GM in D5W 5% 50 ML IV SCH (14:00)
[2017-07-29] MEDS ORDERED: ALBUMIN 25% 100 ML IV PRN (15:45)
[2017-07-29] MEDS ORDERED: CEFEPIME HYDROCHLORIDE 1 GM in D5W 5% 50 ML IV SCH (22:00)
[2017-07-30] VITALS (107 sets, daily range): BP systolic 82–120; BP diastolic 31–76
[2017-07-30] MEDS: ACCU-CHEK COMFORT CURVE STRIP VI SCH ×4 (00:21→17:10)
[2017-07-30] MEDS: NOREPINEPHRINE BITARTRATE 250 ML IV SCH (00:29)
[2017-07-30] MEDS: MORPHINE SULF INJ 2 MG/ML SYRINGE 1ML IV PRN ×2 (01:45→09:30)
[2017-07-30] MEDS: MIDAZOLAM DRIP 50 mg/50mL 50 ML IV SCH ×2 (02:54→09:31)
[2017-07-30 04:13] LABS: CONDITION Y; DEFINITIVE SEE PRINTOUT; Hematocrit 21.4 % (41.0-53.0); Hemoglobin 7.6 g/dL (13.5-17.5); Mean Corpuscular Hemoglobin 36.9 pg (28.0-32.0); Mean Corpuscular Hgb Conc. 35.3 g/dL (32.0-36.0); Mean Corpuscular Volume 104.4 fL (80.0-100.0); Platelet Count (auto) 24 10^3/uL (140-450); Red Cell Distribution Width 19.1 % (11.6-16.0); SUSPECT SEE PRINTOUT; White Blood Cell 18.4 10^3/uL (4.4-10.8)
[2017-07-30 04:24] LABS: Myelocytes % 0; Promyelocytes % 0; Reactive Lymphocytes 0
[2017-07-30 05:12] LABS: Albumin 2.8 g/dL (3.4-5.0); BUN/Creatinine Ratio 6.7; Bilirubin, Total 24.3 mg/dL (0.2-1.0); Potassium 4.9 mmol/L (3.5-5.1)
[2017-07-30 05:23] LABS: Total Protein 4.8 g/dL (6.4-8.2)
[2017-07-30] MEDS: InsuLIN REG 1unit/0.01ml Soln (100units/ml) SC SCH ×4 (05:58→17:10)
[2017-07-30] MEDS: AZTREONAM 1 GM in D5W 5% 50 ML IV SCH ×3 (05:58→22:21)
[2017-07-30 07:22] LABS: Metamyelocytes % 2
[2017-07-30 07:23] LABS: Anisocytosis Slight; Platelet Estimate Decreased
[2017-07-30 07:50] LABS: Allen Test Yes; Base Excess -6.3 mmol/L (-2.0-2.0); Blood 02Sat 92.2 % (96-100); Blood COHb 2.4 % (0.5-1.5); Blood MetHb 0.4 % (0.0-1.5); HCO3 18.2 mmol/L (22-26.0); HHb 7.6 % (0.0-5.0); MODE VENT - A/C; O2Hb 89.6 % (94.0-97.0); PCO2 32.1 mmHg (35.0-45.0); PCO2(T) 32.1 mmHg (35.0-45.0); PO2 74.7 mmHg (80.0-100.0); PO2(T) 74.7 mmHg (80.0-100.0); Sample Type Arterial; pH 7.372 (7.350-7.450)
[2017-07-30] MEDS: PANTOPRAZOLE 40 MG/10 ML VIAL IV SCH (09:18)
[2017-07-30] MEDS ORDERED: EPOETIN ALFA 10,000 UNIT/1 ML VIAL IV ONE (16:30)
[2017-07-30] MEDS ORDERED: SODIUM CHL 0.9% 1000 ML BAG XX ONE (16:30)
[2017-07-30] MEDS ORDERED: NOREPINEPHRINE BITARTRATE 16 MG in D5W 5% 250 ML IV SCH (17:58)
[2017-07-30] MEDS: VASOPRESSIN 50 UNITS in SODIUM CHL 0.9% 247.5 ML IV SCH (18:00)
[2017-07-31] VITALS (10 sets, daily range): BP systolic 82–95; BP diastolic 34–41
== END 2017-07-31 09:40 | disposition expired | DRG 720 ==
LOC: ER 17:16 → OVERFLOW 17:17 → ICU WEST 07-16 17:07 → CENTRAL 07-24 02:41 → TELE-CENTR 07-24 19:55 → ICU WEST 07-25 03:09
PROVIDERS: ADMIT Internal Medicine; ATTEND Internal Medicine
PROC: 0W9G3ZZ Drainage of Peritoneal Cavity, Percutaneous Approach (ICD-10-PCS; 2017-07-16)
PROC: 5A1D60Z (ICD-10-PCS; 2017-07-21)
PROC: 02HV33Z Insertion of Infusion Device into Superior Vena Cava, Percutaneous Approach (ICD-10-PCS; 2017-07-21)
PROC: B548ZZA Ultrasonography of Superior Vena Cava, Guidance (ICD-10-PCS; 2017-07-21)
PROC: 30233L1 Transfusion of Nonautologous Fresh Plasma into Peripheral Vein, Percutaneous Approach (ICD-10-PCS; 2017-07-21)
PROC: 30233K1 Transfusion of Nonautologous Frozen Plasma into Peripheral Vein, Percutaneous Approach (ICD-10-PCS; 2017-07-21)
PROC: 0W9G3ZZ Drainage of Peritoneal Cavity, Percutaneous Approach (ICD-10-PCS; 2017-07-22)
PROC: 5A1955Z Respiratory Ventilation, Greater than 96 Consecutive Hours (ICD-10-PCS; principal; 2017-07-25)
PROC: 0BH17EZ Insertion of Endotracheal Airway into Trachea, Via Natural or Artificial Opening (ICD-10-PCS; 2017-07-25)
PROC: 5A12012 Performance of Cardiac Output, Single, Manual (ICD-10-PCS; 2017-07-31)
DX: A41.9 Sepsis, unspecified organism (principal); N17.0 Acute kidney failure with tubular necrosis; J96.01 Acute respiratory failure with hypoxia; K76.7 Hepatorenal syndrome; R65.21 Severe sepsis with septic shock; D61.818 Other pancytopenia; E43 Unspecified severe protein-calorie malnutrition; D68.9 Coagulation defect, unspecified; N18.6 End stage renal disease; K72.90 Hepatic failure, unspecified without coma; I46.9 Cardiac arrest, cause unspecified; K76.6 Portal hypertension; K70.31 Alcoholic cirrhosis of liver with ascites; D63.8 Anemia in other chronic diseases classified elsewhere; K80.20 Calculus of gallbladder without cholecystitis without obstruction; F10.20 Alcohol dependence, uncomplicated; L89.891 Pressure ulcer of other site, stage 1; K57.90 Diverticulosis of intestine, part unspecified, without perforation or abscess without bleeding; I12.0 Hypertensive chronic kidney disease with stage 5 chronic kidney disease or end stage renal disease; E87.1 Hypo-osmolality and hyponatremia; F17.210 Nicotine dependence, cigarettes, uncomplicated; Z51.5 Encounter for palliative care; Z82.49 Family history of ischemic heart disease and other diseases of the circulatory system; Z83.3 Family history of diabetes mellitus; Z99.2 Dependence on renal dialysis; Z88.0 Allergy status to penicillin; Z68.29 Body mass index [BMI] 29.0-29.9, adult
CPT/HCPCS: 36415; 36600; 51702; 71010; 74176; 76700; 76942; 80048; 80053; 80202; 81001; 82140; 82150; 82570; 82805; 82962; 83605; 83690; 83735; 83880; 84100; 84156; 84300; 84484; 85007; 85014; 85018; 85025; 85027; 85610; 85730; 86706; 86803; 86850; 86900; 86901; 87040; 87070; 87081; 87086; 87205; 87340; 87493; 90935; 92950; 93005; 94002; 94003; 94640; 96365; 96367; 96368; 96375; 99291; C9113; G0378; J0330; J0696; J0885; J1335; J1642; J1956; J2250; J2405; J3430; J3490; J7060